=== PATIENT | male | born 2000 | race Hispanic/Latino ===

== ENCOUNTER 2019-01-05 03:38 | Emergency (ER) | payer SELFPAY ==
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
--- NOTE | 2019-01-05 08:02 | RAD ---
XR Hand Rt 3 View STANDARD History: Injury Comparison: None. Findings: No acute fracture or malalignment of the hand. Incompletely evaluated ulnar diaphyseal frac ture. Soft tissues are unremarkable aside from mild swelling at the proximal interphalangeal joint middle finger. Impression: 1. Incompletely evaluated ulnar diaphyseal fracture. 2. Mild soft tissue swelling centered at the proximal interphalangeal joint middle finger. 3. No radiopaque foreign object.
--- NOTE | 2019-01-05 08:12 | RAD ---
XR Forearm Rt 2 View STANDARD History: Injury Comparison: None. Findings: Transverse oblique fracture distal ulnar diaphysis with one cortex width lateral displaceme nt and mild comminution. Impression: Distal ulnar diaphyseal fracture.
--- NOTE | 2019-01-05 08:23 | RAD ---
XR Forearm Rt 2 View STANDARD History: Postreduction Comparison: Radiograph same day Findings: Slight interval improvement of the ulnar diaphyseal fracture. Impression: Improved alignment postreduction
== END 2019-01-05 05:58 ==
LOC: NAV ERS 03:38
DX: S52.601A Unspecified fracture of lower end of right ulna, initial encounter for closed fracture (principal); V43.52XA Car driver injured in collision with other type car in traffic accident, initial encounter
CPT/HCPCS: 25535; 70450; 72125